=== PATIENT | female | born 1955 | race Caucasian/White ===

== ENCOUNTER → 2020-10-18 12:27 | Outpatient (CLI) | payer MEDICARE, SELFPAY ==
[2020-10-18 21:34] LABS: COVID19 - ORCAS (NP or Nasal) Negative (Negative)
== END ==
PROVIDERS: PCP Family Medicine; Visit Provider Physician Assistant
DX: Z20.822 Contact with and (suspected) exposure to COVID-19 (principal)
CPT/HCPCS: C9803; U0003

== ENCOUNTER → 2023-01-25 10:38 | Outpatient (CLI) | payer MEDICARE, OTHER, SELFPAY ==
--- NOTE | 2023-01-25 10:42 | DI.MRI.S_ITS ---
PROCEDURE: MR HEAD/BRAIN WO/W CON INDICATIONS: Right facial/lip weakness. Right ear pain. TECHNIQUE: Noncontrast axial T1 spin echo, axial T2 fast spin echo, sagittal and axial FLAIR, coronal T2 fast spin echo, axial gradient echo, axial diffusion and ADC through the brain. After the administration of contrast, axial and coronal and sagittal T1 spin echo with fat saturation through the brain. COMPARISON: None. FINDINGS: Image quality: Excellent. CSF spaces: Basal cisterns are patent. No extra-axial fluid collections. Ventricles are normal in size and shape. Brain: No midline shift. No intracranial bleeds or masses. No abnormal intracranial enhancement. There is cerebral volume loss for age. There is periventricular white matter chronic small vessel ischemic change. The brainstem appears normal. Diffusion-weighted images demonstrate no acute ischemic insults. No chronic ischemic insults. Normal intravascular flow voids are present. Note is made of a prominent cavum septum pellucidum. When discovered in isolation, this is considered to be a developmental variant of no clinical consequence. Skull and face: Calvarial marrow is normal in signal. Orbits appear normal. Sinuses: No significant paranasal sinus disease is seen. There is minimal right mastoid air cell fluid. IMPRESSION: No imaging explanation is found for this patient's presenting symptoms. No masses or abnormal enhancement can be seen. No findings of acute or subacute infarction can be seen. Minimal right mastoid air cell fluid can be seen. Please correlate with potential mastoiditis. Additional findings: Prominent cavum septum pellucidum Dictated by: Bry Esquivel M.D. on 01/25/2023 at 11:35 Approved by: Bry Esquivel M.D. on 01/25/2023 at 11:39
== END ==
PROVIDERS: PCP Physician Assistant Medical; Referring Provider Physician Assistant; Visit Provider Physician Assistant
DX: R29.810 Facial weakness (principal); H92.01 Otalgia, right ear
CPT/HCPCS: 70553

== ENCOUNTER → 2023-02-14 09:57 | Outpatient (CLI) | payer MEDICARE, OTHER, SELFPAY ==
[2023-02-14 19:15] LABS: Alanine Aminotransferase 24 IU/L (<35); Albumin 4.4 g/dL (3.5-5.0); Albumin Globulin Ratio 1.6 (1.0-2.8); Alkaline Phosphatase 73 U/L (38-126); Aspartate Aminotransferase 24 IU/L (14-36); BUN Creatinine Ratio 29.2 (6-22); Bilirubin Total 0.3 mg/dL (0.2-1.3); Blood Urea Nitrogen 19 mg/dL (7-17); Calcium 10.3 mg/dL (8.4-10.2); Carbon Dioxide 29 mmol/L (22-32); Chloride 102 mmol/L (98-107); Cholesterol 223 mg/dL (140-199); Estimated Glomerular Filt Rate > 60 mL/min (>60); Globulin 2.7 g/dL (1.7-4.1); Glucose 104 mg/dL (80-110); HDL Cholesterol 49 mg/dL (40-60); HEMOLYSIS < 15 (0-50); LDL Cholesterol Calculated 144 mg/dL (<100); Potassium 4.1 mmol/L (3.4-5.1); Sodium 140 mmol/L (137-145); Total Protein 7.1 g/dL (6.3-8.2); Triglycerides 150 mg/dL (35-150)
[2023-02-14 19:21] LABS: Add Manual Diff / Slide Review NO; Basophils Absolute Auto 100 /uL (0-100); Basophils Percent Auto 0.9 % (0-2); Eosinophils Absolute Auto 300 /uL (0-450); Eosinophils Percent Auto 4.5 % (2-4); Hematocrit 40.1 % (36-46); Hemoglobin 13.2 g/dL (12.0-16.0); Lymphocytes Absolute Auto 1700 /uL (1100-4500); Lymphocytes Percent Auto 27.9 % (25-40); Mean Corpuscular HGB Conc 32.9 % (30-36); Mean Corpuscular Hemoglobin 27.8 PG (26-34); Mean Corpuscular Volume 84.6 fL (80-100); Monocytes Absolute Auto 400 /uL (0-900); Monocytes Percent Auto 6.4 % (3-14); Neutrophils Absolute Auto 3700 /uL (1500-7000); Neutrophils Percent Auto 60.3 % (50-75); Platelet Count 339 X10^3/uL (150-400); Red Blood Cell Count 4.74 X10^6/uL (4.0-5.2); Red Cell Distribution Width 14.6 % (11.6-14.8); White Blood Cell Count 6.2 X10^3/uL (4.5-11.0)
[2023-02-14 19:45] LABS: TSH w/ Reflex to FT4 1.89 uIU/mL (0.47-4.68)
[2023-02-14 20:05] LABS: Hep C Virus Ab w/Reflex Quant NEGATIVE s/c (NEGATIVE)
== END ==
PROVIDERS: PCP Physician Assistant Medical; Visit Provider Physician Assistant
DX: R07.89 Other chest pain (principal); R25.2 Cramp and spasm; R49.9 Unspecified voice and resonance disorder; R03.0 Elevated blood-pressure reading, without diagnosis of hypertension; Z13.6 Encounter for screening for cardiovascular disorders; Z82.3 Family history of stroke; Z83.3 Family history of diabetes mellitus; Z86.69 Personal history of other diseases of the nervous system and sense organs; Z11.59 Encounter for screening for other viral diseases
CPT/HCPCS: 80053; 80061; 84443; 85025; 86803

== ENCOUNTER → 2024-06-02 10:56 | Outpatient (CLI) | payer MEDICARE, OTHER, SELFPAY ==
[2024-06-02 19:46] LABS: Add Manual Diff / Slide Review NO; Basophils Absolute Auto 100 /uL (0-100); Basophils Percent Auto 1.1 % (0-2); Eosinophils Absolute Auto 100 /uL (0-450); Eosinophils Percent Auto 1.7 % (2-4); Hematocrit 39.1 % (36-46); Hemoglobin 12.7 g/dL (12.0-16.0); Lymphocytes Absolute Auto 2000 /uL (1100-4500); Mean Corpuscular HGB Conc 32.4 % (30-36); Mean Corpuscular Hemoglobin 27.6 PG (26-34); Mean Corpuscular Volume 85.2 fL (80-100); Monocytes Absolute Auto 400 /uL (0-900); Neutrophils Absolute Auto 4100 /uL (1500-7000); Neutrophils Percent Auto 61.2 % (50-75); Platelet Count 309 X10^3/uL (150-400); Red Cell Distribution Width 14.8 % (11.6-14.8); White Blood Cell Count 6.7 X10^3/uL (4.5-11.0)
[2024-06-02 19:48] LABS: Alanine Aminotransferase 40 IU/L (<35); Albumin 4.5 g/dL (3.5-5.0); Albumin Globulin Ratio 1.5 (1.0-2.8); Alkaline Phosphatase 67 U/L (38-126); Aspartate Aminotransferase 63 IU/L (14-36); BUN Creatinine Ratio 30.1 (6-22); Bilirubin Total 0.4 mg/dL (0.2-1.3); Blood Urea Nitrogen 22 mg/dL (7-17); C-Reactive Protein Quant < 0.5 mg/dL (<1.0); Calcium 9.8 mg/dL (8.4-10.2); Carbon Dioxide 29 mmol/L (22-32); Chloride 105 mmol/L (98-107); Estimated Glomerular Filt Rate > 60 mL/min (>60); Globulin 3.1 g/dL (1.7-4.1); Glucose 127 mg/dL (80-110); HEMOLYSIS 21 (0-50); Potassium 3.9 mmol/L (3.4-5.1); Sodium 141 mmol/L (137-145); Total Protein 7.6 g/dL (6.3-8.2)
[2024-06-02 20:10] LABS: Thyroid Stimulating Hormone 2.17 uIU/mL (0.47-4.68)
[2024-06-02 20:21] LABS: Ferritin 61 ng/mL (11-264)
[2024-06-02 20:33] LABS: Erythrocyte Sedimentation Rate 17 MM/HR (0-20)
[2024-06-04 17:11] LABS: Free Kappa Lt Chains, Serum 19.8 mg/L (3.3-19.4)
[2024-06-05 05:36] LABS: Calcium 9.9 mg/dL (8.7-10.3); Parathyroid Hormone, Intact 33 pg/mL (15-65)
[2024-06-05 12:40] LABS: Immunoglobulin A, Serum 156 mg/dL (87-352); Immunoglobulin G,Serum 904 mg/dL (586-1602); Immunoglobulin M, Serum 53 mg/dL (26-217)
[2024-06-05 15:39] LABS: Albumin 3.9 g/dL (2.9-4.4); Alpha-1-Globulin 0.2 g/dL (0.0-0.4); Alpha-2-Globulin 0.8 g/dL (0.4-1.0); Globulin Total 3.1 g/dL (2.2-3.9)
== END ==
PROVIDERS: PCP Physician Assistant Medical; Visit Provider Family Medicine
DX: R04.0 Epistaxis (principal); E83.52 Hypercalcemia; E61.1 Iron deficiency; M54.50 Low back pain, unspecified; M25.552 Pain in left hip
CPT/HCPCS: 80053; 82310; 82728; 82784; 83883; 83970; 84155; 84165; 84443; 85025; 85651; 86140; 86334

== ENCOUNTER → 2024-06-26 10:46 | Outpatient (CLI) | payer MEDICARE, OTHER, SELFPAY ==
[2024-06-26 13:09] LABS: Prothrombin Time 10.8 SECONDS (9.4-12.5)
[2024-06-26 13:12] LABS: PTT Partial Thromboplastin Tim 45 SECONDS (25.1-36.5)
[2024-06-26 13:16] LABS: HEMOLYSIS < 15 (0-50); Iron 101 ug/dL (37-170)
[2024-06-26 13:18] LABS: Cholesterol 247 mg/dL (140-199); HDL Cholesterol 54 mg/dL (40-60); LDL Cholesterol Calculated 148 mg/dL (<100); Triglycerides 223 mg/dL (35-150)
[2024-06-26 13:29] LABS: Percent Iron Saturation 36 % (15-50); Total Iron Binding Capacity 283 ug/dL (265-497); Transferrin 276 mg/dL (206-381)
[2024-06-26 13:54] LABS: Ferritin 59 ng/mL (11-264)
[2024-06-27 01:39] LABS: HBsAg Screen Negative (Negative); Hepatitis A Antibody IgM Negative (Negative); Hepatitis B Core Antibody IgM Negative (Negative); Hepatitis C Antibody Non Reactive (Non Reactive)
[2024-06-27 19:38] LABS: Free Kappa Lt Chains, Serum 17.8 mg/L (3.3-19.4); Free Lambda Lt Chains,Serum 10.4 mg/L (5.7-26.3)
[2024-07-01 13:13] LABS: ANA Screen, IFA Negative (.)
== END ==
LOC: LAB 10:47
PROVIDERS: PCP Family Medicine; Referring Provider Family Medicine; Visit Provider Family Medicine
DX: R79.89 Other specified abnormal findings of blood chemistry (principal); K75.9 Inflammatory liver disease, unspecified; R04.0 Epistaxis; R03.0 Elevated blood-pressure reading, without diagnosis of hypertension; R76.8 Other specified abnormal immunological findings in serum; E78.2 Mixed hyperlipidemia; E83.52 Hypercalcemia
CPT/HCPCS: 80061; 80074; 82728; 83036; 83540; 83550; 83883; 85610; 85730; 86038

== ENCOUNTER → 2024-07-03 10:00 | Outpatient (CLI) | payer MEDICARE, OTHER, SELFPAY | PROVIDERS: PCP Family Medicine; Visit Provider Family Medicine | DX: R04.0 Epistaxis (principal); R73.9 Hyperglycemia, unspecified; E78.2 Mixed hyperlipidemia; R76.8 Other specified abnormal immunological findings in serum; R79.89 Other specified abnormal findings of blood chemistry; E83.52 Hypercalcemia; R03.0 Elevated blood-pressure reading, without diagnosis of hypertension | CPT/HCPCS: 83883 ==

== ENCOUNTER → 2024-08-04 09:29 | Outpatient (CLI) | payer MEDICARE, SELFPAY | PROVIDERS: PCP Family Medicine; Visit Provider Nurse Practitioner Adult Health | DX: Z01.419 Encounter for gynecological examination (general) (routine) without abnormal findings (principal); Z11.51 Encounter for screening for human papillomavirus (HPV); Z12.4 Encounter for screening for malignant neoplasm of cervix | CPT/HCPCS: 87798; 87801 ==

== ENCOUNTER → 2024-08-12 13:36 | Outpatient (CLI) | payer MEDICARE, SELFPAY ==
[2024-08-12 19:12] LABS: Free T4, Direct Thyroxine 0.96 ng/dL (0.78-2.19)
[2024-08-12 19:26] LABS: Thyroid Stimulating Hormone 1.92 uIU/mL (0.47-4.68)
[2024-08-26 10:39] LABS: Percent Free Testosterone 2.34 % (0.50-2.80); Testosterone Free 1.49 ng/dL (0.10-0.85); Testosterone Total 63.8 ng/dL (7.0-40.0)
== END ==
PROVIDERS: PCP Family Medicine; Visit Provider Nurse Practitioner Adult Health
DX: E04.9 Nontoxic goiter, unspecified (principal); L68.0 Hirsutism
CPT/HCPCS: 84402; 84403; 84439; 84443

== ENCOUNTER → 2024-08-13 08:45 | Outpatient (CLI) | payer MEDICARE, OTHER, SELFPAY ==
--- NOTE | 2024-08-13 08:49 | DI.MG.S_ITS ---
MM screening mammo BI: 08/13/2024. BI-RADS: 2 CLINICAL: 68-year old female for bilateral screening mammogram. Tyrer-Cuzick lifetime risk of 9.0%. No personal or first-degree family history of breast cancer. The patient had prior bilateral breast biopsies. PRIOR EXAMS 01/18/2023, 01/24/2022, 01/28/2019, 03/08/2015. MAMMOGRAPHY TECHNIQUE: 2D and 3D (tomosynthesis) digital mammographic views obtained, with additional images as needed for full coverage. Current study was also evaluated with a Computer Aided Detection (CAD) system. DENSITY C. The breasts are heterogeneously dense, which may obscure small masses. MAMMOGRAPHY FINDINGS Right: Biopsy markers present on the right. Benign-appearing mass noted on the right. There are no suspicious masses, calcifications, or other findings in the breast. No significant change from comparison. Left: Biopsy marker present on the left. Benign-appearing mass noted on the left. There are no suspicious masses, calcifications, or other findings in the breast. No significant change from comparison. IMPRESSION: * No evidence of malignancy with benign findings. RECOMMENDATIONS Bilateral * Annual screening mammography. OVERALL ASSESSMENT CATEGORY BI-RADS-2: Benign. The [employer] recommends annual screening mammography beginning at age 40 for women with average risk of breast cancer. ELECTRONICALLY SIGNED: Rocío Cantu M.D. on 08/13/2024 at 05:09:26 PM PT Interpreting Station ID: [id number]
--- NOTE | 2024-08-13 08:49 | DI.RAD.S_ITS ---
PROCEDURE: XR DEXA AXIAL SKELETON INDICATIONS: screening COMPARISON: None. FINDINGS: Lumbar Spine: Bone mineral density 1.033 g/cm2, T score -0.1. Left Femoral Neck: Bone mineral density 0.758 g/cm2, T score -0.8. Left Hip: Bone mineral density 0.900 g/cm2, T score -0.3. Fracture Risk Calculation (when applicable): 10-year fracture risk of a major osteoporotic fracture 8.4 percent and of a hip fracture 0.8 percent. (T score greater or equal to -1.0 to: NORMAL) (T score from -1.1 to -2.4: OSTEOPENIA) (T score less than or equal to -2.5: OSTEOPOROSIS) IMPRESSION: Normal bone mineral density. Follow-up guidelines as follows: Osteoporosis: Consider a repeat DEXA and Vertebral Fracture Assessment (VFA) exam in 2 years or sooner if medically necessary, to reassess this patient's status. Osteopenia: Consider a repeat DEXA in 2-3 years to reassess this patient's status, or if there is a new clinical indication. Normal: Consider a repeat DEXA in 5 years or sooner, or if there is a new clinical indication. All treatment decisions require clinical judgment and consideration of individual patient factors, including patient preferences, comorbidities, previous drug use, risk factors not captured in the FRAX model (e.g., frailty, falls, vitamin D deficiency, increased bone turnover, interval significant decline in bone density ) and possible under- or over-estimation of fracture risk by FRAX. In addition, the NOF Guide recommends that FDA-approved medical therapies be considered in postmenopausal women and men age >= 50 years with a: * Hip or vertebral (clinical or morphometric) fracture * T-score of <=-2.5 at the spine or hip * Ten-year fracture probability by FRAX of >= 3% for hip fracture or >=20% for major osteoporotic fracture. Dictated by: Aj Yu M.D. on 08/13/2024 at 17:02 Approved by: Aj Yu M.D. on 08/13/2024 at 17:03
== END ==
PROVIDERS: PCP Family Medicine; Referring Provider Family Medicine; Visit Provider Family Medicine
DX: R92.333 Mammographic heterogeneous density, bilateral breasts (principal); Z12.31 Encounter for screening mammogram for malignant neoplasm of breast; Z78.0 Asymptomatic menopausal state
CPT/HCPCS: 77063; 77067; 77080

== ENCOUNTER → 2024-10-02 09:23 | Outpatient (CLI) | payer MEDICARE, OTHER, SELFPAY ==
[2024-10-02 19:57] LABS: Alanine Aminotransferase 24 IU/L (<35); Alkaline Phosphatase 80 U/L (38-126); Aspartate Aminotransferase 27 IU/L (14-36); Bilirubin Total 0.4 mg/dL (0.2-1.3); Bilirubin Unconjugated 0.1 mg/dL (0.0-1.1); HEMOLYSIS < 15 (0-50); Triglycerides 227 mg/dL (35-150)
[2024-10-02 20:05] LABS: PTT Partial Thromboplastin Tim 42 SECONDS (25.1-36.5)
[2024-10-02 21:59] LABS: C-Reactive Protein Quant < 0.5 mg/dL (<1.0)
[2024-10-02 22:42] LABS: Albumin Globulin Ratio 1.7 (1.0-2.8)
[2024-10-07 19:36] LABS: Dilute Russell Viper Venom 52.4 sec (0.0-47.0); Hexagonal Phase Phospholipid 8 sec (0-11); Lupus Reflex Interpretation Comment: (.); PTT-LA 47.1 sec (0.0-43.5)
== END ==
PROVIDERS: PCP Family Medicine; Visit Provider Family Medicine
DX: R79.1 Abnormal coagulation profile (principal); E78.1 Pure hyperglyceridemia; R73.9 Hyperglycemia, unspecified; R79.89 Other specified abnormal findings of blood chemistry; R76.8 Other specified abnormal immunological findings in serum; K75.9 Inflammatory liver disease, unspecified; R04.0 Epistaxis
CPT/HCPCS: 80076; 84478; 85598; 85613; 85730; 86140

== ENCOUNTER → 2025-01-13 08:57 | Outpatient (CLI) | payer MEDICARE, OTHER, SELFPAY ==
[2025-01-13 19:51] LABS: Hemoglobin A1C% w Est Avg Glu 6.3 % (4.0-6.0)
[2025-01-13 19:56] LABS: Cholesterol 210 mg/dL (140-199); HDL Cholesterol 44 mg/dL (40-60); Triglycerides 223 mg/dL (35-150)
[2025-01-16 12:36] LABS: Free Kappa Lt Chains, Serum 19.4 mg/L (3.3-19.4); Free Lambda Lt Chains,Serum 10.6 mg/L (5.7-26.3)
== END ==
PROVIDERS: PCP Family Medicine; Visit Provider Family Medicine
DX: R79.89 Other specified abnormal findings of blood chemistry (principal); R73.9 Hyperglycemia, unspecified; R73.09 Other abnormal glucose; R79.1 Abnormal coagulation profile; R76.8 Other specified abnormal immunological findings in serum; R04.0 Epistaxis; K75.9 Inflammatory liver disease, unspecified
CPT/HCPCS: 80061; 83036; 83883

== ENCOUNTER → 2025-04-01 12:37 | Outpatient (CLI) | payer MEDICARE, SELFPAY ==
--- NOTE | 2025-04-01 13:00 | DI.MRI.S_ITS ---
PROCEDURE: MR LUMBAR SPINE WO CON INDICATIONS: lumbar pain TECHNIQUE: Noncontrast sagittal T1 spin echo and T2 fast echo, sagittal STIR, and T2 fast spin echo through the lumbar spine. In cases with scoliosis, additional coronal T2 fast spin echo may be performed. COMPARISON: None. FINDINGS: Image quality: Excellent Mild retrolisthesis of L3 on L4. Grade 1 anterolisthesis of L5 on S1. Vertebral body height of the lumbar spine are well maintained. Multiple scattered vertebral hemangiomas. No suspicious marrow replacing lesion. No marrow edema. Multilevel disc bulge and disc desiccation. Conus terminates at the level of L1-2, and is unremarkable. Right neural foraminal stenosis: Mild at L2-3, L3-4, L4-5. Mild at L5-S1. Left neural foraminal stenosis: Mild at L3-4, L4-5 and L5-S1. Axial images: T12-L1: No central canal stenosis. L1-2: No central canal stenosis. L2-3: Mild disc bulge. Mild bilateral facet arthropathy. No central canal stenosis. L3-4: Mild disc bulge. Mild bilateral facet arthropathy. Mild central canal stenosis. L4-5: Diffuse disc bulge. Mild bilateral facet arthropathy. Mild central canal stenosis. L5-S1: Moderate bilateral facet arthropathy. Disc bulge. No central canal stenosis. Visualized sacrum is intact. T2 hyperintense lesion in the hepatic segment 5, measuring at least 1.6 cm, partially visualized, and is incompletely characterized. Horseshoe kidney is noted. Multiple T2 hyperintense splenic lesion. IMPRESSION: 1. Multilevel degenerative changes, with multilevel mild central canal and neural foraminal stenosis as described above. 2. T2 hyperintense liver and splenic lesions, incomplete the evaluated. Recommend further evaluation with ultrasound abdomen. Dictated by: Gladys Hubbard M.D. on 04/01/2025 at 15:07 Approved by: Gladys Hubbard M.D. on 04/01/2025 at 15:16
== END ==
LOC: MRI 12:39
PROVIDERS: PCP Family Medicine; Referring Provider Family Medicine; Visit Provider Family Medicine
DX: M51.369 Other intervertebral disc degeneration, lumbar region without mention of lumbar back pain or lower extremity pain (principal); M51.379 Other intervertebral disc degeneration, lumbosacral region without mention of lumbar back pain or lower extremity pain; M48.061 Spinal stenosis, lumbar region without neurogenic claudication; M48.07 Spinal stenosis, lumbosacral region; M47.816 Spondylosis without myelopathy or radiculopathy, lumbar region; M47.817 Spondylosis without myelopathy or radiculopathy, lumbosacral region; M43.16 Spondylolisthesis, lumbar region; M43.17 Spondylolisthesis, lumbosacral region; D18.09 Hemangioma of other sites; D73.89 Other diseases of spleen; K76.9 Liver disease, unspecified; M54.50 Low back pain, unspecified; Q63.1 Lobulated, fused and horseshoe kidney
CPT/HCPCS: 72148